=== PATIENT | male | born 1985 | race Caucasian/White ===

== ENCOUNTER 2020-04-01 09:53 | Outpatient (REF) | payer OTHER, SELFPAY | END 2020-04-01 09:54 | disposition home or self-care (01) | LOC: HO.WFDLDS 09:53 | PROVIDERS: Visit Provider Internal Medicine | DX: Z20.828 Contact with and (suspected) exposure to other viral communicable diseases (principal) | CPT/HCPCS: C9803; U0003 ==

== ENCOUNTER → 2020-09-01 10:14 | Outpatient (BNVA) | payer OTHER, SELFPAY | PROVIDERS: PCP Obstetrics & Gynecology; Visit Provider Surgery ==

== ENCOUNTER → 2020-09-25 08:33 | Outpatient (BNVA) | payer OTHER, SELFPAY | PROVIDERS: PCP Obstetrics & Gynecology; Visit Provider Surgery ==